=== PATIENT | female | born 1960 ===

== ENCOUNTER 2018-11-02 16:27 | Observation (INO) ==
[2018-11-02 20:28] LABS: Basophils % 0.7 % (0.0-0.8); Eosinophils # 0.1 10*3/uL (0.0-0.87); Eosinophils % 1.6 % (0.00-10.9); Hematocrit 32.3 VOL% (35.7-47.0); Hemoglobin 9.9 GM/DL (12.0-16.0); Immature Granulocytes % 0.5 %; Immature Granulocytes Absolute 0.03 #; Lymphocytes # 0.8 10*3/uL (1.4-4.0); Lymphocytes % 13.4 % (21.3-54.2); Mean Corpuscular HGB Conc 30.7 GM/DL (32-36); Mean Corpuscular Volume 105.2 FL (87-102); Mean Platelet Volume 9.2 FL (9.6-12.0); Monocytes % 9.5 % (1.7-12.7); Neutrophils % 74.3 % (38.7-73.9); Platelet Count 179 T/CUMM (130-400); Red Blood Count 3.07 MC/CUMM (3.8-5.5); Red Cell Distribution Width 19.2 % (9.3-17.3); White Blood Count 5.8 T/CUMM (4-12)
[2018-11-02 20:48] LABS: Alanine Aminotransferase < 6 U/L (13-56); Alkaline Phosphatase 136 U/L (45-117); Amylase 77 U/L (25-115); Aspartate Amino Transferase 14 U/L (0-37); Bilirubin,Indirect 0.9 MG/DL (0.0-1.0); Blood Urea Nitrogen 25 MG/DL (7-18); Calcium 6.9 MG/DL (8.5-10.1); Glucose 83 MG/DL (74-106); Osmolality,Calculated 275.8 MOS/KG (273-304); Total Protein 8.2 G/DL (6.4-8.3)
[2018-11-02 23:19] LABS: INR 1.2; PT Patient Result 12.7 SECS
[2018-11-03] MEDS ORDERED: DEXTROSE 50% 25 GM/50 ML SYRINGE IV PRN (02:33)
[2018-11-03] MEDS ORDERED: GLUCAGON 1 MG VIAL IM PRN (02:33)
[2018-11-03] MEDS ORDERED: ONDANSETRON 4 MG/2 ML VIAL IV PRN (02:33)
[2018-11-03] MEDS ORDERED: MORPHINE 4 MG/1 ML VIAL IV PRN (02:33)
[2018-11-03] MEDS ORDERED: DOCUSATE SODIUM 100 MG CAPSULE PO PRN (02:33)
[2018-11-03] MEDS ORDERED: POTASSIUM CHLORIDE 20 MEQ TABLET PO ONE (03:13)
[2018-11-03 03:56] LABS: Basophils % 0.7 % (0.0-0.8); Eosinophils # 0.1 10*3/uL (0.0-0.87); Hematocrit 32.6 VOL% (35.7-47.0); Hemoglobin 10.2 GM/DL (12.0-16.0); Immature Granulocytes % 0.4 %; Immature Granulocytes Absolute 0.02 #; Lymphocytes # 0.7 10*3/uL (1.4-4.0); Lymphocytes % 12.9 % (21.3-54.2); Mean Corpuscular HGB Conc 31.3 GM/DL (32-36); Mean Corpuscular Volume 105.2 FL (87-102); Mean Platelet Volume 9.4 FL (9.6-12.0); Monocytes % 9.1 % (1.7-12.7); Neutrophils % 74.9 % (38.7-73.9); Platelet Count 186 T/CUMM (130-400); White Blood Count 5.5 T/CUMM (4-12)
[2018-11-03 04:21] LABS: Alanine Aminotransferase < 9 U/L (13-56); Albumin 3.1 G/DL (3.4-5.0); Alkaline Phosphatase 131 U/L (45-117); Aspartate Amino Transferase 16 U/L (0-37); Blood Urea Nitrogen 27 MG/DL (7-18); Calcium 7.2 MG/DL (8.5-10.1); Glucose 87 MG/DL (74-106); Osmolality,Calculated 271.2 MOS/KG (273-304); Total Protein 8.4 G/DL (6.4-8.3)
[2018-11-03] MEDS ORDERED: ALBUMIN 25% 12.5 GM/50 ML VIAL IV ONE (08:58)
[2018-11-03] MEDS ORDERED: ALBUMIN 25% 12.5 GM in PREMIX 1 EACH IV ONE (09:11)
[2018-11-03 10:17] LABS: Neutrophils,Peritoneal Fluid 5 %; RBC,Peritoneal Fluid < 1 T/CUMM
[2018-11-03] MEDS: INSULIN LISPRO 100 UNIT/ML SUBCUT SCH ×4 (10:33→21:13)
[2018-11-03] MEDS: SEVELAMER CARBONATE 800 MG TABLET PO SCH ×3 (10:34→18:13)
[2018-11-03] MEDS ORDERED: ALBUMIN 25% 50 GM in PREMIX 1 EACH IV ONE (14:00)
[2018-11-03 14:28] LABS: Hepatitis B Core IgM Quant < 0.05 Index; Hepatitis B Surface Ag Quant < 0.10 Index; Hepatitis B Surface Ag Result Negative (Negative); Hepatitis C Virus Ab Quant 0.03 Index; Hepatitis C Virus Ab Result Negative (Negative)
[2018-11-04] MEDS: INSULIN LISPRO 100 UNIT/ML SUBCUT SCH ×4 (07:52→21:22)
[2018-11-04] MEDS: SEVELAMER CARBONATE 800 MG TABLET PO SCH ×3 (09:28→17:36)
[2018-11-05] MEDS: INSULIN LISPRO 100 UNIT/ML SUBCUT SCH ×4 (07:43→20:55)
[2018-11-05] MEDS: SEVELAMER CARBONATE 800 MG TABLET PO SCH ×3 (09:54→16:25)
[2018-11-06 06:18] LABS: Basophils # 0.1 10*3/uL (0.0-0.2); Basophils % 0.8 % (0.0-0.8); Eosinophils # 0.2 10*3/uL (0.0-0.87); Eosinophils % 2.8 % (0.00-10.9); Hematocrit 31.6 VOL% (35.7-47.0); Immature Granulocytes % 0.3 %; Immature Granulocytes Absolute 0.02 #; Lymphocytes # 0.8 10*3/uL (1.4-4.0); Lymphocytes % 12.2 % (21.3-54.2); Mean Corpuscular HGB Conc 31.6 GM/DL (32-36); Mean Corpuscular Volume 104.6 FL (87-102); Mean Platelet Volume 9.7 FL (9.6-12.0); Monocytes % 14.1 % (1.7-12.7); Neutrophils % 69.8 % (38.7-73.9); Platelet Count 163 T/CUMM (130-400); Red Blood Count 3.02 MC/CUMM (3.8-5.5); White Blood Count 6.4 T/CUMM (4-12)
[2018-11-06 06:21] LABS: Osmolality,Calculated 276.8 MOS/KG (273-304)
[2018-11-06 08:16] VITALS: BP 114/46
[2018-11-06] MEDS: INSULIN LISPRO 100 UNIT/ML SUBCUT SCH ×2 (09:29→12:36)
[2018-11-06] MEDS: SEVELAMER CARBONATE 800 MG TABLET PO SCH (09:31)
== END 2018-11-06 11:30 | disposition home or self-care (01) ==
LOC: N.ED 16:27 → N.EDINP 16:27 → SUATTDRO 11-03 02:32 → N.2E 11-03 02:59
PROVIDERS: ADMIT Internal Medicine

== ENCOUNTER 2018-12-28 21:40 | Observation (INO) ==
[2018-12-28 23:10] LABS: Basophils # 0.1 10*3/uL (0.0-0.2); Basophils % 0.9 % (0.0-0.8); Eosinophils # 0.1 10*3/uL (0.0-0.87); Eosinophils % 2.1 % (0.00-10.9); Hematocrit 27.8 VOL% (35.7-47.0); Hemoglobin 8.7 GM/DL (12.0-16.0); Immature Granulocytes % 0.4 %; Immature Granulocytes Absolute 0.02 #; Lymphocytes # 0.7 10*3/uL (1.4-4.0); Lymphocytes % 13.3 % (21.3-54.2); Mean Corpuscular HGB Conc 31.3 GM/DL (32-36); Mean Corpuscular Volume 106.1 FL (87-102); Mean Platelet Volume 9.7 FL (9.6-12.0); Monocytes % 9.9 % (1.7-12.7); Neutrophils % 73.4 % (38.7-73.9); Platelet Count 231 T/CUMM (130-400); Red Blood Count 2.62 MC/CUMM (3.8-5.5); Red Cell Distribution Width 17.2 % (9.3-17.3); White Blood Count 5.3 T/CUMM (4-12)
[2018-12-28 23:23] LABS: Alanine Aminotransferase < 6 U/L (13-56); Albumin 2.9 G/DL (3.4-5.0); Alkaline Phosphatase 105 U/L (45-117); Aspartate Amino Transferase 15 U/L (0-37); Blood Urea Nitrogen 48 MG/DL (7-18); Calcium 8.2 MG/DL (8.5-10.1); Glucose 92 MG/DL (74-106); Osmolality,Calculated 287.7 MOS/KG (273-304)
[2018-12-29] MEDS ORDERED: DEXTROSE 50% 25 GM/50 ML VIAL IV PRN (02:04)
[2018-12-29] MEDS ORDERED: GLUCAGON 1 MG VIAL IM PRN (02:04)
[2018-12-29] MEDS: ACETAMINOPHEN 325 MG TABLET PO PRN ×2 (04:35→10:07)
[2018-12-29] MEDS ORDERED: PNEUMOCOCCAL VACCINE (23 VALENT) 0.5 ML VIAL IM ONE (05:17)
[2018-12-29 07:04] LABS: Alanine Aminotransferase < 6 U/L (13-56); Albumin 2.6 G/DL (3.4-5.0); Alkaline Phosphatase 99 U/L (45-117); Aspartate Amino Transferase 16 U/L (0-37); Blood Urea Nitrogen 49 MG/DL (7-18); Calcium 8.2 MG/DL (8.5-10.1); Glucose 84 MG/DL (74-106); Osmolality,Calculated 284.8 MOS/KG (273-304); Total Protein 7.6 G/DL (6.4-8.3)
[2018-12-29] MEDS ORDERED: NITROGLYCERIN SL 0.4 MG TABLET SL PRN (08:16)
[2018-12-29 09:06] LABS: Troponin I 0.351 NG/ML (0.00-0.045)
[2018-12-29] MEDS: PANTOPRAZOLE 40 MG TABLET PO SCH (10:08)
[2018-12-29] MEDS: CLOPIDOGREL 75 MG TABLET PO SCH (10:08)
[2018-12-29] MEDS: ASPIRIN EC 81 MG TABLET PO SCH (10:08)
[2018-12-29] MEDS: PROPRANOLOL 10 MG TABLET PO SCH ×3 (10:08→20:36)
[2018-12-30 03:28] LABS: Basophils # 0.1 10*3/uL (0.0-0.2); Basophils % 1.2 % (0.0-0.8); Eosinophils # 0.2 10*3/uL (0.0-0.87); Eosinophils % 3.1 % (0.00-10.9); Hematocrit 26.7 VOL% (35.7-47.0); Hemoglobin 8.4 GM/DL (12.0-16.0); Immature Granulocytes % 0.4 %; Immature Granulocytes Absolute 0.02 #; Lymphocytes # 0.5 10*3/uL (1.4-4.0); Lymphocytes % 10.8 % (21.3-54.2); Mean Corpuscular HGB Conc 31.5 GM/DL (32-36); Mean Corpuscular Volume 105.1 FL (87-102); Mean Platelet Volume 9.4 FL (9.6-12.0); Neutrophils % 73.5 % (38.7-73.9); Platelet Count 203 T/CUMM (130-400); Red Blood Count 2.54 MC/CUMM (3.8-5.5); Red Cell Distribution Width 17.5 % (9.3-17.3); White Blood Count 4.8 T/CUMM (4-12)
[2018-12-30 03:51] LABS: Calcium 8.1 MG/DL (8.5-10.1); Osmolality,Calculated 280.5 MOS/KG (273-304)
[2018-12-30] MEDS: ASPIRIN EC 81 MG TABLET PO SCH (09:22)
[2018-12-30] MEDS: PANTOPRAZOLE 40 MG TABLET PO SCH (09:22)
[2018-12-30] MEDS: CLOPIDOGREL 75 MG TABLET PO SCH (09:23)
[2018-12-30] MEDS: PROPRANOLOL 10 MG TABLET PO SCH ×2 (09:23→21:00)
[2018-12-30] MEDS ORDERED: EPOETIN ALFA 2,000 UNIT/1 ML VIAL IV PRN (13:45)
[2018-12-31] MEDS: PROPRANOLOL 10 MG TABLET PO SCH (13:38)
[2018-12-31] MEDS: CLOPIDOGREL 75 MG TABLET PO SCH (13:38)
[2018-12-31] MEDS: ASPIRIN EC 81 MG TABLET PO SCH (13:38)
[2018-12-31] MEDS: PANTOPRAZOLE 40 MG TABLET PO SCH (13:38)
[2018-12-31 13:55] VITALS: BP 106/61
[2019-01-01 00:11] LABS: CDT Result Negative (Negative); CDT Specimen Source STOOL
== END 2018-12-31 14:08 | disposition home or self-care (01) ==
LOC: EDBD → EDUNIT# → N.ED 21:40 → N.EDINP 21:40 → SUATTDRO 12-29 02:04 → N.TELEN 12-29 03:18
PROVIDERS: ADMIT Internal Medicine; ATTEND Emergency Medicine

== ENCOUNTER 2019-01-05 16:36 | Inpatient (IN) ==
[2019-01-05] MEDS ORDERED: DEXTROSE 50% 25 GM/50 ML VIAL IV PRN (21:52)
[2019-01-05] MEDS ORDERED: NICOTINE 21 MG/24 HR PATCH TRANSDERM PRN (22:12)
[2019-01-05] MEDS ORDERED: ONDANSETRON 4 MG/2 ML VIAL IV PRN (22:12)
[2019-01-05] MEDS: MORPHINE 4 MG/1 ML VIAL IV PRN (22:16)
[2019-01-05 22:58] LABS: Basophils # 0.1 10*3/uL (0.0-0.2); Basophils % 1.4 % (0.0-0.8); Eosinophils # 0.2 10*3/uL (0.0-0.87); Hematocrit 29.1 VOL% (35.7-47.0); Hemoglobin 9.1 GM/DL (12.0-16.0); Immature Granulocytes % 0.5 %; Immature Granulocytes Absolute 0.02 #; Lymphocytes # 0.6 10*3/uL (1.4-4.0); Mean Corpuscular HGB Conc 31.3 GM/DL (32-36); Mean Corpuscular Volume 104.7 FL (87-102); Mean Platelet Volume 9.6 FL (9.6-12.0); Monocytes % 11.9 % (1.7-12.7); NRBC # 0.02 10*3/uL; Neutrophils % 68.2 % (38.7-73.9); Platelet Count 221 T/CUMM (130-400); Red Blood Count 2.78 MC/CUMM (3.8-5.5); Red Cell Distribution Width 17.4 % (9.3-17.3); White Blood Count 4.3 T/CUMM (4-12)
[2019-01-05 23:12] LABS: Alanine Aminotransferase < 9 U/L (13-56); Albumin 2.6 G/DL (3.4-5.0); Alkaline Phosphatase 97 U/L (45-117); Aspartate Amino Transferase 17 U/L (0-37); Blood Urea Nitrogen 54 MG/DL (7-18); Calcium 8.5 MG/DL (8.5-10.1); Glucose 93 MG/DL (74-106); Osmolality,Calculated 287.8 MOS/KG (273-304); Total Protein 7.4 G/DL (6.4-8.3)
[2019-01-06 08:27] LABS: INR 1.3; PT Patient Result 13.8 SECS
[2019-01-06 10:56] LABS: Hepatitis B Core IgM Quant 0.05 Index; Hepatitis B Surface Ag Quant < 0.10 Index; Hepatitis B Surface Ag Result Negative (Negative); Hepatitis C Virus Ab Quant 0.18 Index; Hepatitis C Virus Ab Result Negative (Negative)
[2019-01-06] MEDS: MORPHINE 4 MG/1 ML VIAL IV PRN (13:37)
[2019-01-06] MEDS: SEVELAMER CARBONATE 800 MG TABLET PO SCH ×2 (16:16→21:38)
[2019-01-07 05:49] LABS: Basophils # 0.1 10*3/uL (0.0-0.2); Basophils % 1.2 % (0.0-0.8); Eosinophils # 0.1 10*3/uL (0.0-0.87); Eosinophils % 2.8 % (0.00-10.9); Hematocrit 29.7 VOL% (35.7-47.0); Hemoglobin 9.1 GM/DL (12.0-16.0); Immature Granulocytes % 0.4 %; Immature Granulocytes Absolute 0.02 #; Lymphocytes # 0.7 10*3/uL (1.4-4.0); Lymphocytes % 13.6 % (21.3-54.2); Mean Corpuscular HGB Conc 30.6 GM/DL (32-36); Mean Corpuscular Volume 106.5 FL (87-102); Mean Platelet Volume 9.5 FL (9.6-12.0); Monocytes % 15.4 % (1.7-12.7); Neutrophils % 66.6 % (38.7-73.9); Platelet Count 207 T/CUMM (130-400); Red Blood Count 2.79 MC/CUMM (3.8-5.5); Red Cell Distribution Width 17.6 % (9.3-17.3)
[2019-01-07 06:13] LABS: Calcium 8.7 MG/DL (8.5-10.1); Osmolality,Calculated 276.8 MOS/KG (273-304)
[2019-01-07] MEDS: CINACALCET 30 MG TABLET PO SCH (08:29)
[2019-01-07] MEDS: SEVELAMER CARBONATE 800 MG TABLET PO SCH ×3 (08:29→21:19)
[2019-01-07] MEDS: ACETAMINOPHEN 325 MG TABLET PO PRN ×2 (08:33→21:19)
[2019-01-07] MEDS ORDERED: ALBUMIN 25% 12.5 GM/50 ML VIAL IV ONE (10:00)
[2019-01-07] MEDS ORDERED: ALBUMIN 25% 25 GM in PREMIX 1 EACH IV ONE (10:04)
[2019-01-07 10:25] LABS: Neutrophils,Peritoneal Fluid 14 %
[2019-01-07 10:26] LABS: RBC,Peritoneal Fluid 10 T/CUMM
[2019-01-08 06:04] LABS: Basophils # 0.1 10*3/uL (0.0-0.2); Basophils % 0.9 % (0.0-0.8); Eosinophils # 0.2 10*3/uL (0.0-0.87); Eosinophils % 2.9 % (0.00-10.9); Hematocrit 28.9 VOL% (35.7-47.0); Hemoglobin 9.1 GM/DL (12.0-16.0); Immature Granulocytes % 0.6 %; Immature Granulocytes Absolute 0.03 #; Lymphocytes # 0.7 10*3/uL (1.4-4.0); Lymphocytes % 12.5 % (21.3-54.2); Mean Corpuscular HGB Conc 31.5 GM/DL (32-36); Mean Platelet Volume 9.4 FL (9.6-12.0); Monocytes % 12.2 % (1.7-12.7); Neutrophils % 70.9 % (38.7-73.9); Platelet Count 181 T/CUMM (130-400); Red Blood Count 2.78 MC/CUMM (3.8-5.5); Red Cell Distribution Width 17.7 % (9.3-17.3); White Blood Count 5.4 T/CUMM (4-12)
[2019-01-08 06:31] LABS: Calcium 7.3 MG/DL (8.5-10.1); Osmolality,Calculated 283.4 MOS/KG (273-304)
[2019-01-08 07:48] VITALS: BP 110/56
[2019-01-08] MEDS: CINACALCET 30 MG TABLET PO SCH (08:13)
[2019-01-08] MEDS: SEVELAMER CARBONATE 800 MG TABLET PO SCH (08:13)
[2019-01-08 09:08] LABS: INR 1.3; PT Patient Result 13.6 SECS
[2019-01-08] MEDS ORDERED: ALUM/MAG/SIMETH/LIDO VISC 1:1 30 ML BOTTLE PO ONE (12:57)
[2019-01-08] MEDS ORDERED: ENOXAPARIN 30 MG/0.3 ML SYRINGE SUBCUT SCH (21:00)
== END 2019-01-08 15:15 | disposition home or self-care (01) | DRG 432 ==
LOC: SUATTDRO 21:17 → INTOOBSV 21:17 → N.2E 21:17 → SUATTDRO 01-07 14:21
PROVIDERS: ADMIT Internal Medicine Cardiovascular Disease; ATTEND Phlebology